=== PATIENT | male | born 1945 | race Caucasian/White ===

== ENCOUNTER 2020-01-08 14:40 | Outpatient (REF) | payer MEDICARE, SELFPAY ==
--- NOTE | 2020-01-08 14:45 | US_ITS ---
EXAMINATION: US VENOUS ULTRASOUND WITH DOPPLER LOWER EXTREMITY, RIGHT CLINICAL INFORMATION: Right lower extremity pain. Assess for occult DVT COMPARISON: Right lower extremity venous ultrasound 07/30/2019. TECHNIQUE: Ultrasound of the deep veins is performed from the hip to the calf with compression sonography and color and pulse Doppler assessment. Spectral analysis with color-flow imaging is performed. FINDINGS: There is normal venous compression and respiratory variation and augmented flow. The visualized common femoral vein, superficial femoral vein, profunda femoral vein, popliteal vein, and the trifurcation region shows no evidence of deep venous thrombosis. There is no popliteal fossa cyst demonstrated. There is a node with normal mireya architecture noted right groin, short axis dimension 0.8 cm. IMPRESSION: No DVT demonstrated in the right lower extremity.
[2020-01-08 17:09] LABS: MANUAL DIFF FLAG NO
[2020-01-08 17:22] LABS: Basophils Absolute Auto 0.1 X10*3/uL (0.0-0.2); Basophils Percent Auto 0.8 % (0-2); Eosinophils Absolute Auto 0.2 X10*3/uL (0.0-0.4); Eosinophils Percent Auto 1.9 % (0-4); Hematocrit 34.5 % (42-52); Hemoglobin 11.2 g/dl (14.0-18.0); Imm Gran Abs Auto 0.06 X10*3/uL (0.00-0.03); Imm Gran Pct Auto 0.8 % (0.0-0.4); Lymphocytes Absolute Auto 1.7 X10*3/uL (1.2-4.9); Lymphocytes Percent Auto 21.9 % (20-40); Mean Corpuscular HGB Conc 32.5 g/dl (31.0-36.0); Mean Corpuscular Hemoglobin 29.8 pg (27.0-33.0); Mean Corpuscular Volume 91.8 fL (80-98); Mean Platelet Volume 9.4 fL (9.4-12.4); Monocytes Absolute Auto 0.8 X10*3/uL (0.1-1.2); Monocytes Percent Auto 10.7 % (2-11); Neutrophils Percent Auto 63.9 % (45-73); Platelet Count 289 X10*3/uL (160-400); Red Blood Count 3.76 X10*6/uL (4.60-5.80); Red Cell Distribution Width 11.8 % (11.0-16.0); White Blood Count 7.9 X10*3/uL (4.8-10.8)
[2020-01-08 17:35] LABS: Prothrombin Time 12.4 SEC (10.8-13.0)
== END 2020-01-08 14:41 | disposition home or self-care (01) ==
LOC: HO.HMGCX 14:40
PROVIDERS: PCP Internal Medicine; Visit Provider Nurse Practitioner Family
DX: M79.651 Pain in right thigh (principal); R10.31 Right lower quadrant pain; D64.9 Anemia, unspecified
CPT/HCPCS: 36415; 85025; 85610; 93971

== ENCOUNTER 2020-01-10 13:14 | Outpatient (REF) | payer MEDICARE, SELFPAY ==
--- NOTE | 2020-01-10 13:19 | XR_ITS ---
EXAMINATION: XR HIP, RIGHT CLINICAL INFORMATION: Right hip pain COMPARISON: None TECHNIQUE: Two views of the right hip. FINDINGS: There is no evidence of acute fracture or dislocation of the right hip. Right hip joint space is maintained with mild marginal spurring. No lytic or sclerotic destructive bony lesions identified. Prominent vascular calcifications are seen. There is mild spurring about the greater trochanter. 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
== END 2020-01-10 13:15 | disposition home or self-care (01) ==
LOC: HO.HMGCX 13:14
PROVIDERS: PCP Internal Medicine; Visit Provider Internal Medicine
DX: M25.551 Pain in right hip (principal)
CPT/HCPCS: 73502

== ENCOUNTER → 2020-02-22 10:20 | Outpatient (REF) | payer MEDICARE, SELFPAY ==
--- NOTE | 2020-02-22 10:24 | ECG_ITS ---
Hook-up date: 2020-02-22 10:35:00 Duration: 47:59:00 Test Indications: BRADYCARDIA Medications: 52371 QRS complexes 377 Ventricular ectopics which represent <1 % of total QRS comp. 79 Supraventricular ectopics which represent <1 % of total QRS comp. * Paced QRS complexs which represent % of total QRS comp. VENTRICULAR ECTOPY 377 Isolated 0 Bigeminal Cycles 0 Couplets 0 Runs 0 Beats in Runs * Beats LONGEST at * BPM at :: -- * Beats FASTEST at * BPM at :: -- SUPRAVENTRICULAR ECTOPY 40 Isolated 2 Couplets 3 Runs 35 Beats in Runs 28 Beats LONGEST at 91 BPM at 10:22:52 2020-02-23 4 Beats FASTEST at 107 BPM at 05:03:07 2020-02-23 HEART RATES 54 MIN at 04:34:22 2020-02-23 62 AVG 114 MAX at 10:22:55 2020-02-23 LONGEST RR 1.3600 secs at 04:34:17 2020-02-23 S-T LEVELS Channel 1 - 128 mm at 10:35:00 2020-02-22 - 128 mm at 10:35:00 2020-02-22 Channel 2 - 128 mm at 10:35:00 2020-02-22 - 128 mm at 10:35:00 2020-02-22 Channel 3 - 128 mm at 02:95:41 -- - 128 mm at 02:95:41 Underlying rhythm is sinus; Average ventricular rate 62/min; range 54-114/min; About 48% of the time, ventricular rate <60/min; Rare PACs with some brief runs; Rare isolated PVCs; Patient did not report any symptoms in the diary Referred By: Marci Nelson Overread By: CASANDRA OCHOA
== END ==
LOC: HO.CARD 10:20
PROVIDERS: Visit Provider Nurse Practitioner Family
DX: R00.1 Bradycardia, unspecified (principal); D64.9 Anemia, unspecified; G89.29 Other chronic pain; M25.569 Pain in unspecified knee
CPT/HCPCS: 93226